=== PATIENT | male | born 1945 | race Caucasian/White ===

== ENCOUNTER 2020-08-15 10:06 | Emergency (ER) | payer OTHER ==
[~2020-08-15] VITALS: Ht 180.3 cm; Wt 65.8 kg
[2020-08-15 11:13] LABS: BASOPHILS ABSOLUTE AUTO 0.04 K/mm3 (0.00-0.23); BASOPHILS PERCENT AUTO 0 % (0-2); EOSINOPHILS ABSOLUTE AUTO 0.01 K/mm3 (0.00-0.68); EOSINOPHILS PERCENT AUTO 0 % (0-6); Hematocrit 48.9 % (37.0-53.0); Hemoglobin 16.2 g/dL (13.5-17.5); IMMATURE GRAN ABSOLUTE AUTO 0.06 K/mm3 (0.00-0.10); IMMATURE GRAN PERCENT AUTO 0 % (0-1); LYMPHOCYTES ABSOLUTE AUTO 1.07 K/mm3 (0.84-5.20); LYMPHOCYTES PERCENT AUTO 5 % (21-46); MONOCYTES ABSOLUTE AUTO 1.86 K/mm3 (0.16-1.47); MONOCYTES PERCENT AUTO 9 % (4-13); Mean Corpuscular HGB 29.7 pg (26.0-34.0); Mean Corpuscular HGB Conc 33.1 g/dL (31.5-36.5); Mean Corpuscular Volume 90 fL (80-100); NEUTROPHILS ABSOLUTE AUTO 17.29 K/mm3 (1.96-9.15); NEUTROPHILS PERCENT AUTO 85 % (41-73); Platelet Count 155 K/mm3 (150-400); RDW Coefficient Variation 14.4 % (11.7-14.2); RDW Standard Deviation 46.9 fL (35.1-46.3); Red Blood Cell Count 5.45 M/mm3 (4.30-5.90); White Blood Cell Count 20.33 K/mm3 (4.00-11.30)
[2020-08-15 11:15] LABS: Mean Platelet Volume 13.3 fL (9.1-12.4)
[2020-08-15 11:28] LABS: Albumin, Blood 3.5 g/dL (3.4-5.0); Albumin/Globulin Ratio 1.3 (0.8-1.8); Bilirubin, Total 1.1 mg/dL (0.1-1.0); Bun/Creatinine Ratio 24.6 (12.0-20.0); Calcium, Blood 9.4 mg/dL (8.5-10.1); Creatinine, Blood 1.42 mg/dL (0.60-1.20); Globulin, Blood 2.7 g/dL (2.2-4.0); Potassium, Blood 4.4 mmol/L (3.5-5.5); Total Protein, Blood 6.2 g/dL (6.4-8.2)
[2020-08-15 15:40] LABS: Source, Urine Clean Catch
[2020-08-15 15:43] LABS: Appearance, Urine Cloudy (Clear); Bilirubin, Urine Neg (Neg); Blood, Urine 4+ (Neg); Color, Urine Yellow (P-Yellow); Glucose Qualitative, Urine Neg (Neg); Ketones, Urine 2+ (Neg); Leukocyte Esterase, Urine 3+ (Neg); Nitrite, Urine Neg (Neg); Protein, Urine 3+ (Neg); Specific Gravity, Urine 1.025 (1.003-1.022); Urobilinogen, Urine 1+ (Normal)
[2020-08-15 16:04] LABS: U Amphetamine Screen Not Detected; U Barbituate Screen Not Detected; U Benzodiazapine Screen Not Detected; U Buprenorphine Screen Not Detected; U Cannabinoids Screen Not Detected; U Cocaine Screen Not Detected; U Methadone Screen Not Detected; U Methamphetamine Screen Not Detected; U Opiates Screen Not Detected; U Oxycodone Screen Not Detected; U Phencyclidine Screen Not Detected; U Propoxyphene Screen Not Detected
[2020-08-15 16:06] LABS: Bacteria Many /hpf; Squamous Epithelial Cells Not Seen /hpf (Few); White Blood Cells, Urine TNTC /hpf (0-5)
[2020-08-15] MEDS ORDERED: Bactrim Ds Tab1 EACH PO (16:28)
== END 2020-08-15 17:17 | disposition home or self-care (01) ==
LOC: ER 10:06 → EDBD 10:06 → ER 17:17
PROVIDERS: Emergency Medicine
DX: N39.0 Urinary tract infection, site not specified (principal); R94.5 Abnormal results of liver function studies; Y09 Assault by unspecified means
CPT/HCPCS: 70450; 71046; 80053; 81001; 82947; 85025; 87077; 87086; 87186; 93005; 93010; 96360; 96361; 99284-25; A9270; J7030

== ENCOUNTER 2020-08-16 13:02 | Inpatient (IN) | payer OTHER ==
[~2020-08-16] VITALS: Ht 172.7 cm; Wt 97.5 kg
[~2020-08-16 13:02] MED LIST: Bactrim Ds Tab1 EACH PO
[2020-08-16 14:12] LABS: BASOPHILS ABSOLUTE AUTO 0.03 K/mm3 (0.00-0.23); BASOPHILS PERCENT AUTO 0 % (0-2); EOSINOPHILS ABSOLUTE AUTO 0.03 K/mm3 (0.00-0.68); EOSINOPHILS PERCENT AUTO 0 % (0-6); Hematocrit 46.7 % (37.0-53.0); Hemoglobin 14.9 g/dL (13.5-17.5); IMMATURE GRAN ABSOLUTE AUTO 0.06 K/mm3 (0.00-0.10); IMMATURE GRAN PERCENT AUTO 0 % (0-1); LYMPHOCYTES ABSOLUTE AUTO 0.98 K/mm3 (0.84-5.20); LYMPHOCYTES PERCENT AUTO 7 % (21-46); MONOCYTES ABSOLUTE AUTO 1.17 K/mm3 (0.16-1.47); MONOCYTES PERCENT AUTO 8 % (4-13); Mean Corpuscular HGB Conc 31.9 g/dL (31.5-36.5); Mean Corpuscular Volume 91 fL (80-100); Mean Platelet Volume 12.9 fL (9.1-12.4); NEUTROPHILS ABSOLUTE AUTO 11.75 K/mm3 (1.96-9.15); NEUTROPHILS PERCENT AUTO 84 % (41-73); Platelet Count 146 K/mm3 (150-400); RDW Coefficient Variation 14.6 % (11.7-14.2); RDW Standard Deviation 49.1 fL (35.1-46.3); Red Blood Cell Count 5.14 M/mm3 (4.30-5.90); White Blood Cell Count 14.02 K/mm3 (4.00-11.30)
[2020-08-16 14:33] LABS: Albumin, Blood 3.3 g/dL (3.4-5.0); Albumin/Globulin Ratio 1.3 (0.8-1.8); Bilirubin, Total 0.9 mg/dL (0.1-1.0); Bun/Creatinine Ratio 24.8 (12.0-20.0); Calcium, Blood 8.9 mg/dL (8.5-10.1); Creatinine, Blood 1.45 mg/dL (0.60-1.20); Globulin, Blood 2.5 g/dL (2.2-4.0); Potassium, Blood 4.2 mmol/L (3.5-5.5); Total Protein, Blood 5.8 g/dL (6.4-8.2); Troponin I 0.067 ng/mL (0.000-0.040)
[2020-08-16 16:01] LABS: Source, Urine Catheter
[2020-08-16 16:09] LABS: Appearance, Urine Hazy (Clear); Bilirubin, Urine Neg (Neg); Blood, Urine 3+ (Neg); Color, Urine Amber (P-Yellow); Glucose Qualitative, Urine Neg (Neg); Ketones, Urine 2+ (Neg); Leukocyte Esterase, Urine 3+ (Neg); Nitrite, Urine Pos (Neg); Protein, Urine 2+ (Neg); Specific Gravity, Urine 1.025 (1.003-1.022); Urobilinogen, Urine 1+ (Normal)
[2020-08-16 16:20] LABS: Bacteria Many /hpf; Red Blood Cells, Urine 0-2 /hpf (0-2); Squamous Epithelial Cells Not Seen /hpf (Few); White Blood Cells, Urine 25-50 /hpf (0-5)
--- NOTE | 2020-08-16 18:17 | NUR ---
ADMIT PT ARRIVED TO ICU 3 AT 1730 VIA ER BED. PT IS AWAKE, ALERT, AND ORIENTED UPON ARRIVAL. PT TRANSFERED TO ICU BED. PT IS FORGETFUL AT TIMES, BUT ANSWERS QUESTIONS APPROPRIATELY. PT DENIES PAIN OR DISCOMFORT. PT ON 10L O2 VIA OXYMIZER. RIGHT FEMORAL ARTERIAL LINE AND CENTRAL LINE IN PLACE. GOOD WAVEFORM NOTED TO ART LINE. PT WITH LEVOPHED INFUSING AT 8 MCG/MIN. PT WITH SEVERE BLE EDEMA. PT WITH SCATTERED ABRASIONS R/T RECENT FALLS. WILL CONTINUE TO MONITOR AND REPORT OFF TO ONCOMING RN.
[2020-08-16 18:52] LABS: Source, Urine Catheter
[2020-08-16 18:58] LABS: Appearance, Urine Hazy (Clear); Bilirubin, Urine Neg (Neg); Blood, Urine 3+ (Neg); Color, Urine Amber (P-Yellow); Glucose Qualitative, Urine Neg (Neg); Ketones, Urine 1+ (Neg); Leukocyte Esterase, Urine 3+ (Neg); Nitrite, Urine Pos (Neg); Protein, Urine 2+ (Neg); Urobilinogen, Urine 1+ (Normal)
[2020-08-16 19:05] LABS: Bacteria Many /hpf; Red Blood Cells, Urine 0-2 /hpf (0-2); Squamous Epithelial Cells Not Seen /hpf (Few); White Blood Cells, Urine TNTC /hpf (0-5)
--- NOTE | 2020-08-16 20:25 | NUR ---
CARE ASSUMED DAUGHTER AND MD AT BEDSIDE, PT AWAKE/ FOLLOWS. ON 8 L OXYMIZER, GTTS: LEVO AT 8 MCG/MIN. A-LINE ZEROED AND LEVELED. ALARMS CHECKED. CONTNUE CARE.
--- NOTE | 2020-08-16 22:10 | NUR ---
DAUGHTER EMILIE RODRIGUEZ LEFT PATIENTS BEDSIDE AT 1945 WITH INSTRUCTIONS FOR STAFF TO PLAEASE ONLY NOTIFY HER OF FATHERS STATUS AND UPDATES. NOTED. [facility] CALLED FOR UPDATE, WAS REFERED TO CALL EMILIE RODRIGUEZ, OR PT ADVOCATE IN MORNING TO SET UP VISITATIONS.
[2020-08-16 23:30] LABS: Creatine Kinase MB 6.8 ng/mL (0.0-3.6); Creatine Kinase MB Index 1.4 (0.0-4.0); Thyroid Stimulating Hormone 2.46 uIU/mL (0.360-4.800); Troponin I 0.081 ng/mL (0.000-0.040)
--- NOTE | 2020-08-17 00:30 | NUR ---
REASSESSMENT CONTINUE TO DECREASE LEVO GTT ANISHA. CURRENTLY AT 5 MCG/MIN. PT WITH SOME ECTOPY, FEW RUNS OF [id number] TO HOSPITALIST-ORDERED MAG VIA IV, STARTED. CONTINUE TO ASSESS.
[2020-08-17 03:42] LABS: BASOPHILS ABSOLUTE AUTO 0.07 K/mm3 (0.00-0.23); BASOPHILS PERCENT AUTO 0 % (0-2); EOSINOPHILS ABSOLUTE AUTO 0.02 K/mm3 (0.00-0.68); EOSINOPHILS PERCENT AUTO 0 % (0-6); Hematocrit 44.3 % (37.0-53.0); Hemoglobin 14.5 g/dL (13.5-17.5); IMMATURE GRAN ABSOLUTE AUTO 0.08 K/mm3 (0.00-0.10); IMMATURE GRAN PERCENT AUTO 1 % (0-1); LYMPHOCYTES ABSOLUTE AUTO 1.38 K/mm3 (0.84-5.20); LYMPHOCYTES PERCENT AUTO 9 % (21-46); MONOCYTES ABSOLUTE AUTO 1.63 K/mm3 (0.16-1.47); MONOCYTES PERCENT AUTO 10 % (4-13); Mean Corpuscular HGB 29.4 pg (26.0-34.0); Mean Corpuscular HGB Conc 32.7 g/dL (31.5-36.5); Mean Corpuscular Volume 90 fL (80-100); NEUTROPHILS ABSOLUTE AUTO 13.03 K/mm3 (1.96-9.15); NEUTROPHILS PERCENT AUTO 80 % (41-73); Platelet Count 149 K/mm3 (150-400); RDW Coefficient Variation 14.6 % (11.7-14.2); RDW Standard Deviation 48.3 fL (35.1-46.3); Red Blood Cell Count 4.93 M/mm3 (4.30-5.90); White Blood Cell Count 16.21 K/mm3 (4.00-11.30)
[2020-08-17 04:03] LABS: Albumin, Blood 2.9 g/dL (3.4-5.0); Albumin/Globulin Ratio 1.3 (0.8-1.8); Bilirubin, Direct 0.4 mg/dL (0.0-0.3); Bilirubin, Indirect 0.6 mg/dL (0.1-0.7); Bun/Creatinine Ratio 23.4 (12.0-20.0); Calcium, Blood 8.3 mg/dL (8.5-10.1); Creatinine, Blood 1.58 mg/dL (0.60-1.20); Globulin, Blood 2.3 g/dL (2.2-4.0); Magnesium, Blood 2.6 mg/dL (1.6-2.4); Phosphorus, Blood 4.8 mg/dL (2.5-4.9); Potassium, Blood 4.7 mmol/L (3.5-5.5); Total Protein, Blood 5.2 g/dL (6.4-8.2)
--- NOTE | 2020-08-17 05:41 | NUR ---
ASSESSED CONTINUE TO WEAN LEVO ANISHA, CURRENTLY @ 3 MCG/MIN. O2 WEANEED TO 3 L NC. PT AWAKE, REHAN, FOLLOWS, IS NIGHTMUTE. UO OVERNIGHT 800ML, YELLOW WITH SED. AM LABS SENT WAITING RESULTS. PT CLAIMS HE HAS NO PREVIOUS MEDICAL HST, AND TAKES NO MEDS AT HOME. PTS DAUGHTER EMILIE CALLED AN UPDATED. CONTINUE TO ASSESS.
--- NOTE | 2020-08-17 05:55 | NUR ---
PT REFUSED COMPRESSION STOCKINGS.
[2020-08-17 06:01] LABS: Creatine Kinase MB 5.5 ng/mL (0.0-3.6); Creatine Kinase MB Index 1.5 (0.0-4.0); Troponin I 0.101 ng/mL (0.000-0.040)
--- NOTE | 2020-08-17 17:54 | NUR ---
Met with pt this am along with daughter Angélica, who was in the lobby. Pt showed improvement overall overnight. Provided therapeutic listening to daughter Angélica while she talks about yesterday and how scary it felt. She states she is feeling grateful he is alive at this point. Met with pt, he is pleasant and cooperative. He knows where he is, and states he is breathing "So much better" now. He denies any pain today. He states he has no questions or concerns at this time. Will remain available if needed.
--- NOTE | 2020-08-17 18:45 | NUR ---
SHIFT SUMMARY: CARLY SAT UP ON THE EDGE OF THE BED TODAY AND HAD A RUN OF V-TACH WITH RATE IN THE LOW 200'S. HE ALSO WAS HAVING TROUBLE KEEPING HIS BLOOD PRESSURE UP ON JUST THE LEVOPHED, SO HE WAS STARTED ON VASOPRESSIN 0.04U/MIN @ 1020. HE THEN WAS TITRATED DOWN FROM 25MCG/MIN OF LEVO TO 9MCG/MIN AT THE END OF THE SHIFT. HE SLEPT ON AND OFF THROUGHOUT THE SHIFT, HE VISITED WITH HIS DAUGHTER FOR A COUPLE OF HOURS, HE HAS BLE PITTING EDEMA. HE DENIED ANY C/O CHEST PAIN/SHORT NESS OF BREATH/DIAPHORESIS T/O THE SHIFT. HE WAS VISITED BY , AND . PT REMAINED PLEASANT AND COOPERATIVE T/O SHIFT.
--- NOTE | 2020-08-17 19:49 | NUR ---
CARE ASSUMED. PT A&O, SLIGHTLY CONFUSED, MAY NEED REPEAT ANSWER TO QUESTIONS AT TIMES, BUT UNDERSTANDS WHERE HE IS, THE YEAR, AND SELF. CONTINUED ON LEVO GTT, VASOPRESSIN GTT, WITH SALAS IN PLACE, LASIX PUSH GIVEN ALL PER MAR. PT ON 3 L N/C, VITALS CURRENTLY STABLE. CONTINUE ASSESSMENT AND CASRE.
--- NOTE | 2020-08-17 21:09 | NUR ---
DAUGHTER EMILIE CALLED AND UPDATED ON POC FOR SHIFT
[2020-08-18 03:39] LABS: BASOPHILS ABSOLUTE AUTO 0.06 K/mm3 (0.00-0.23); BASOPHILS PERCENT AUTO 0 % (0-2); EOSINOPHILS ABSOLUTE AUTO 0.05 K/mm3 (0.00-0.68); EOSINOPHILS PERCENT AUTO 0 % (0-6); Hematocrit 44.4 % (37.0-53.0); Hemoglobin 14.5 g/dL (13.5-17.5); IMMATURE GRAN ABSOLUTE AUTO 0.06 K/mm3 (0.00-0.10); IMMATURE GRAN PERCENT AUTO 0 % (0-1); LYMPHOCYTES PERCENT AUTO 12 % (21-46); MONOCYTES ABSOLUTE AUTO 1.44 K/mm3 (0.16-1.47); MONOCYTES PERCENT AUTO 10 % (4-13); Mean Corpuscular HGB 29.2 pg (26.0-34.0); Mean Corpuscular HGB Conc 32.7 g/dL (31.5-36.5); Mean Corpuscular Volume 90 fL (80-100); Mean Platelet Volume 12.9 fL (9.1-12.4); NEUTROPHILS ABSOLUTE AUTO 10.68 K/mm3 (1.96-9.15); NEUTROPHILS PERCENT AUTO 77 % (41-73); Platelet Count 148 K/mm3 (150-400); RDW Coefficient Variation 14.6 % (11.7-14.2); RDW Standard Deviation 47.7 fL (35.1-46.3); Red Blood Cell Count 4.96 M/mm3 (4.30-5.90); White Blood Cell Count 13.89 K/mm3 (4.00-11.30)
[2020-08-18 03:58] LABS: Albumin, Blood 2.9 g/dL (3.4-5.0); Albumin/Globulin Ratio 1.2 (0.8-1.8); Bilirubin, Total 0.9 mg/dL (0.1-1.0); Bun/Creatinine Ratio 22.8 (12.0-20.0); Calcium, Blood 8.2 mg/dL (8.5-10.1); Creatinine, Blood 1.58 mg/dL (0.60-1.20); Globulin, Blood 2.4 g/dL (2.2-4.0); Magnesium, Blood 2.2 mg/dL (1.6-2.4); Potassium, Blood 4.5 mmol/L (3.5-5.5); Total Protein, Blood 5.3 g/dL (6.4-8.2)
--- NOTE | 2020-08-18 04:03 | NUR ---
REASSESS NO CHANGES.
--- NOTE | 2020-08-18 10:37 | NUR ---
LATE NOTE SUMMARY OF MORNING: CARLY WAS RESTING COMFORTABLY, O2 @ 3L/NC. LUNGS CLEAR, BELLY ACTIVE, ATE SOME BREAKFAST, DRANK SOME ORANGE JUICE. SALAS TO GRAVITY DRAINAGE, PERIPHERAL EDEMA IMPROVED FROM YESTERDAY, PULSES PALPABLE. AROUND 0915 PT SAYS HE IS IN NEED OF THE BEDPAN FOR BOWEL MOVEMENT. PT ON BEDPAN, WHEN TAKEN OFF, TURNED IN BED TO CLEAN. UPON COMPLETION I WENT TO PUT THE MANUAL BP CUFF ON TO SEE IF WE COULD DC THE RIGHT GROIN RYLAN. PT BEGAN COMPLAINING THAT THE BP CUFF WAS SO TIGHT HE NOW HAS CHEST PAIN. BEGAN QUESTIONING HIM REGARDING HIS CHEST PAIN, HE SAID IT WAS AN 8/10 AND HE WAS HAVING TROUBLE BREATHING. BLOOD PRESSURE WAS DROPPING AND BLOOD WAS ALSO NOTED IN SALAS CATHETER RETURN. MADE AWARE, IN ROOM. ORDERS RECEIVED. PT CONT. C/O C/P AND INABILITY TO BREATHE. EKG AND BLOOD WORK DONE. MEDICATED PER WITH MORPHINE 1MG. PT BEGAN FEELING LESS CHEST PAIN, BIPAP CALLED FOR PER . WHEN ASKED PT DID NOT WANT HIS FAMILY CALLED. DOBUTAMINE WAS ADDED AT 5MCG/KG/MIN PER . DR. CM CALLED. PT NOW TOLERATING BIPAP, BLOOD PRESSURE IMPROVED. SATS IMPROVED. SPOKE WITH Elizabeth., WANT TO TRANSFER TO HEART FAILURE UNIT AT [facility]. HE ALSO SPOKE WITH DAUGHTER. THEY ARE ON THEIR WAY TO SEE CARLY.
[2020-08-18 10:44] LABS: International Normalized Ratio 1.23
--- NOTE | 2020-08-18 11:13 | NUR ---
PT KEEPS TAKING OFF HIS BIPAP MASK, IT IS MAKING HIM SNEEZE. HE SAYS HE LIKES IT, IT HELPS HIM. BUT THEN HE TAKES IT OFF.
--- NOTE | 2020-08-18 11:23 | NUR ---
CORRECTION: SPEAKING TO KENRICK AT [place] NOT [place]. CARLY'S DAUGHTERS AND SON ARE HERE TALKING WITH HIM. HE IS TRYING TO SAY HE DOESN'T WANT TRANSFERRED TO [facility]. HE UNDERSTOOD THE REASON WHY, BUT HE NOW SAYS HE DOESN'T WANT TO TRANSFER. CHILDREN TALKING TO HIM.
--- NOTE | 2020-08-18 12:19 | NUR ---
DR. CM/TRANSFER DR. CM AT BEDSIDE AT THIS TIME, DISCUSSING PLAN OF CARE WITH PT'S FAMILY MEMBERS AT BEDSIDE. PLAN TO TRANSFER PT TO [facility] IN [place] FOR ADVANCED HEART FAILURE THERAPY. DR ROSARIO AT [facility] HAS ACCEPTED PT AT THIS TIME, AWAITING BED ASSIGNMENT. ALL QUESTIONS ANSWERED AT THIS TIME.
--- NOTE | 2020-08-18 13:13 | NUR ---
[facility] [place] HE WILL BE PREPARED FOR TRANSPORT. HE IS AWARE THAT HE WILL BE GOING.
--- NOTE | 2020-08-18 14:45 | NUR ---
CARLY WAS LOADED UP BY [facility] AND [facility] FOR TRIP TO [place]. HE TOLERATED THE PACKAGING AND TRANSFER WELL. THEY JUST LEFT THE UNIT. CARLY WAS ON THE LEVOPHED @ 20/DOBUTAMINE @ 5/VASOPRESSIN @ 0.04. SALAS IN PLACE. CONVERSING WITH STAFF AND DENYING ANY C/O PAIN/SOB/DIAPHORESIS AT THIS TIME. FAMILY IN WAITING AREA TO SAY GOODBYE.
== END 2020-08-18 14:45 | disposition short-term general hospital (02) | DRG 871 ==
LOC: ER 13:02 → ICUW 16:17 → ICUE 16:17
PROVIDERS: Emergency Medicine; Internal Medicine Critical Care Medicine; Physician Assistant; ADMIT Internal Medicine
PROC: 8E0ZXY6 Isolation (ICD-10-PCS; 2020-08-16)
PROC: 3E033XZ Introduction of Vasopressor into Peripheral Vein, Percutaneous Approach (ICD-10-PCS; principal; 2020-08-17)
PROC: 5A09357 Assistance with Respiratory Ventilation, Less than 24 Consecutive Hours, Continuous Positive Airway Pressure (ICD-10-PCS; 2020-08-18)
DX: A41.51 Sepsis due to Escherichia coli [E. coli] (principal); R65.21 Severe sepsis with septic shock; R57.0 Cardiogenic shock; I50.41 Acute combined systolic (congestive) and diastolic (congestive) heart failure; J96.01 Acute respiratory failure with hypoxia; N17.9 Acute kidney failure, unspecified; N39.0 Urinary tract infection, site not specified; I24.8 Other forms of acute ischemic heart disease; I08.1 Rheumatic disorders of both mitral and tricuspid valves; I27.20 Pulmonary hypertension, unspecified
CPT/HCPCS: 36415; 36556; 36625; 51702; 71045; 80048; 80053; 80076; 81001; 82550; 82553; 83605; 83735; 83880; 84100; 84443; 84484; 85025; 85610; 85730; 86850; 86900; 86901; 87040; 87077; 87086; 87186; 93005; 93010; 93306; 94660; 96365-59; 96375-59; 97110; 97161; 97530; 99285-25; C1751; J0456; J0696; J1650; J1940; J2270; J3475; J7030; J7050; J7060

== ENCOUNTER 2020-09-05 11:04 | Emergency (ER) | payer OTHER ==
[~2020-09-05] VITALS: Ht 172.7 cm; Wt 61.2 kg
[2020-09-05] MEDS ORDERED: Amiodarone HCl200 MG PO (12:07)
[2020-09-05] MEDS ORDERED: TAMS.4ER PO (12:07)
[2020-09-05] MEDS ORDERED: CARAFATE1 GM PO (12:07)
[2020-09-05] MEDS ORDERED: PANT40 PO (12:08)
[2020-09-05] MEDS ORDERED: MILRINONE (12:09)
[2020-09-05] MEDS ORDERED: SPIR25 PO (12:09)
[2020-09-05 12:19] LABS: BASOPHILS ABSOLUTE AUTO 0.05 K/mm3 (0.00-0.23); BASOPHILS PERCENT AUTO 0 % (0-2); EOSINOPHILS ABSOLUTE AUTO 0.03 K/mm3 (0.00-0.68); EOSINOPHILS PERCENT AUTO 0 % (0-6); Hematocrit 40.8 % (37.0-53.0); Hemoglobin 13.3 g/dL (13.5-17.5); IMMATURE GRAN ABSOLUTE AUTO 0.07 K/mm3 (0.00-0.10); IMMATURE GRAN PERCENT AUTO 1 % (0-1); LYMPHOCYTES ABSOLUTE AUTO 0.74 K/mm3 (0.84-5.20); LYMPHOCYTES PERCENT AUTO 6 % (21-46); MONOCYTES ABSOLUTE AUTO 2.04 K/mm3 (0.16-1.47); MONOCYTES PERCENT AUTO 17 % (4-13); Mean Corpuscular HGB 29.2 pg (26.0-34.0); Mean Corpuscular HGB Conc 32.6 g/dL (31.5-36.5); Mean Corpuscular Volume 90 fL (80-100); Mean Platelet Volume 10.9 fL (9.1-12.4); NEUTROPHILS ABSOLUTE AUTO 9.26 K/mm3 (1.96-9.15); NEUTROPHILS PERCENT AUTO 76 % (41-73); Platelet Count 233 K/mm3 (150-400); RDW Coefficient Variation 13.9 % (11.7-14.2); RDW Standard Deviation 45.3 fL (35.1-46.3); Red Blood Cell Count 4.56 M/mm3 (4.30-5.90); White Blood Cell Count 12.19 K/mm3 (4.00-11.30)
[2020-09-05 12:27] LABS: Bun/Creatinine Ratio 24.8 (12.0-20.0); Calcium, Blood 8.8 mg/dL (8.5-10.1); Creatinine, Blood 1.65 mg/dL (0.60-1.20); Potassium, Blood 4.4 mmol/L (3.5-5.5)
--- NOTE | 2020-09-05 12:53 | NUR ---
ED Palliative Care Conslult Spoke with Dr Ballesteros and discussed case. Pt to ED for low B/P and diarrhea. Pt has significantly low EF of 10-15%. Currently receiving drip to assist with cardiac. Pt not a candidate for cardiac interventions. Pt to D/C home. Pt just back from bathroom. Pt's daughter Angélica at bedside. Engaged in therapeutic discussion regarding goals of care. Pt is a and this RN thanked him for his service. Engaged in therapeutic listening as Pt and daughter report understanding of Pt not being a candidate for cardiac intervention. Provided gentle education on hospice philosophy with V/U made by Pt and daughter. Pt reports not being ready for hospice at this time. Continued therapeutic listening and answered questions. Pt does state wanting to be DNR. Provided POLST form for Pt and daughter to consider completing. Daughter Angélica reports understanding of life sustaining treatments and each section to complete. Pt expresses appreciation of visit and reports no other concerns at this time. Palliative Care will remain available.
== END 2020-09-05 13:25 | disposition home or self-care (01) ==
LOC: ER 11:04
PROVIDERS: Emergency Medicine
DX: I50.9 Heart failure, unspecified (principal); R19.7 Diarrhea, unspecified; Z87.891 Personal history of nicotine dependence
CPT/HCPCS: 80048; 85025; 93005; 93010; 99285-25

== ENCOUNTER → 2020-09-06 | Outpatient (CLI) | payer OTHER ==
[~2020-09-06] MED LIST changes: +Amiodarone HCl200 MG PO; +CARAFATE1 GM PO; +MILRINONE; +PANT40 PO; +SPIR25 PO; +TAMS.4ER PO
[2020-09-06 15:32] LABS: Albumin, Blood 2.7 g/dL (3.4-5.0); Albumin/Globulin Ratio 0.7 (0.8-1.8); Bilirubin, Total 1.1 mg/dL (0.1-1.0); Bun/Creatinine Ratio 23.1 (12.0-20.0); Calcium, Blood 8.8 mg/dL (8.5-10.1); Creatinine, Blood 1.86 mg/dL (0.60-1.20); Globulin, Blood 3.7 g/dL (2.2-4.0); Potassium, Blood 4.3 mmol/L (3.5-5.5); Total Protein, Blood 6.4 g/dL (6.4-8.2)
== END ==
LOC: LAB 13:48 → LAB HH 13:48
DX: I50.43 Acute on chronic combined systolic (congestive) and diastolic (congestive) heart failure (principal); I27.20 Pulmonary hypertension, unspecified; I42.0 Dilated cardiomyopathy
CPT/HCPCS: 80053

== ENCOUNTER → 2020-09-13 | Outpatient (CLI) | payer OTHER ==
[2020-09-13 16:00] LABS: BASOPHILS PERCENT AUTO 1 % (0-2); EOSINOPHILS ABSOLUTE AUTO 0.03 K/mm3 (0.00-0.68); EOSINOPHILS PERCENT AUTO 0 % (0-6); Hematocrit 43.3 % (37.0-53.0); Hemoglobin 13.9 g/dL (13.5-17.5); IMMATURE GRAN ABSOLUTE AUTO 0.33 K/mm3 (0.00-0.10); IMMATURE GRAN PERCENT AUTO 2 % (0-1); LYMPHOCYTES ABSOLUTE AUTO 1.25 K/mm3 (0.84-5.20); LYMPHOCYTES PERCENT AUTO 9 % (21-46); MONOCYTES ABSOLUTE AUTO 1.63 K/mm3 (0.16-1.47); MONOCYTES PERCENT AUTO 12 % (4-13); Mean Corpuscular HGB 29.6 pg (26.0-34.0); Mean Corpuscular HGB Conc 32.1 g/dL (31.5-36.5); Mean Corpuscular Volume 92 fL (80-100); Mean Platelet Volume 11.1 fL (9.1-12.4); NEUTROPHILS ABSOLUTE AUTO 10.13 K/mm3 (1.96-9.15); NEUTROPHILS PERCENT AUTO 75 % (41-73); Platelet Count 294 K/mm3 (150-400); RDW Coefficient Variation 13.2 % (11.7-14.2); RDW Standard Deviation 44.6 fL (35.1-46.3); White Blood Cell Count 13.47 K/mm3 (4.00-11.30)
[2020-09-13 16:17] LABS: Albumin, Blood 2.9 g/dL (3.4-5.0); Albumin/Globulin Ratio 0.7 (0.8-1.8); Bilirubin, Total 0.6 mg/dL (0.1-1.0); Bun/Creatinine Ratio 33.2 (12.0-20.0); Calcium, Blood 9.1 mg/dL (8.5-10.1); Creatinine, Blood 1.87 mg/dL (0.60-1.20); Globulin, Blood 3.9 g/dL (2.2-4.0); Potassium, Blood 4.5 mmol/L (3.5-5.5); Total Protein, Blood 6.8 g/dL (6.4-8.2)
== END | disposition home or self-care (01) ==
LOC: LAB SHORT 14:42 → LAB 14:42
PROVIDERS: Family Medicine
DX: I50.43 Acute on chronic combined systolic (congestive) and diastolic (congestive) heart failure (principal); I27.20 Pulmonary hypertension, unspecified; I42.0 Dilated cardiomyopathy; R19.5 Other fecal abnormalities
CPT/HCPCS: 80053; 85025

== ENCOUNTER → 2021-02-18 | Outpatient (CLI) | payer OTHER ==
[2021-02-18 19:45] LABS: Hemoglobin 15.9 g/dL (13.5-17.5); Mean Corpuscular HGB Conc 32.4 g/dL (31.5-36.5); Mean Corpuscular Volume 93 fL (80-100); Mean Platelet Volume 12.3 fL (9.1-12.4); Platelet Count 244 K/mm3 (150-400); RDW Coefficient Variation 12.5 % (11.7-14.2); RDW Standard Deviation 42.7 fL (35.1-46.3); White Blood Cell Count 9.11 K/mm3 (4.00-11.30)
[2021-02-18 19:57] LABS: Albumin, Blood 3.7 g/dL (3.4-5.0); Albumin/Globulin Ratio 1.1 (0.8-1.8); Bilirubin, Total 0.5 mg/dL (0.1-1.0); Bun/Creatinine Ratio 26.4 (12.0-20.0); Creatinine, Blood 1.4 mg/dL (0.60-1.20); Globulin, Blood 3.5 g/dL (2.2-4.0); Potassium, Blood 4.1 mmol/L (3.5-5.5); Total Protein, Blood 7.2 g/dL (6.4-8.2)
== END | disposition home or self-care (01) ==
LOC: LAB SHORT 19:08
PROVIDERS: Family Medicine
DX: I11.0 Hypertensive heart disease with heart failure (principal); I50.9 Heart failure, unspecified
CPT/HCPCS: 80053; 83880; 85027